=== PATIENT | female | born 1975 | race African-American/Black ===

== ENCOUNTER 2017-03-19 08:57 | Emergency (ER) | payer OTHER ==
[~2017-03-19] VITALS: Ht 157.5 cm; Wt 80.8 kg
[~2017-03-19 08:57] MED LIST: DOCUSATE SODIU100 MG PO; MAXIMUM DAILY1 EAC1 PO; MOTRIN800 MG PO; NOHOMEMEDS; OMEPRAZOLE40 M1 PO; PROTONIX40 MG PO; TESSALON PERLE100 MG PO; ULTRAM50 MG PO; ZITHROMAX250 MG PO
[2017-03-19 09:55] LABS: PROTHROMBIN TIME 10.6 (9.2-11.2); PTT 24.2 (25-32)
[2017-03-19 09:58] LABS: HEMATOCRIT 23.9 % (36.0-46.0); MCH 16.9 PG (29.0-34.0); MCHC 27.6 G/DL (30.0-36.0); MCV 61.1 FL (83-99); PLATELET COUNT 167 K/uL (156-360); RBC DIS.WIDTH-CV 21.9 % (11.8-14.6); RBC DIS.WIDTH-SD 45.9 % (39-53); RED BLOOD COUNT 3.91 M/uL (3.80-5.20); WHITE BLOOD COUNT 8.9 K/uL (4.1-10.2)
[2017-03-19 11:36] VITALS: BP 144/85
[2017-03-19 12:31] LABS: ANION GAP 10 MEQ/L (2-14); CHLORIDE 108 MEQ/L (99-109); GFR ESTIMATE (CALCULATED) > 59 mL/min/; GLUCOSE 125 mg/dL (70-99); POTASSIUM 3.8 MEQ/L (3.7-5.4); SAMPLE HEMOLYSIS CHECK 0; SAMPLE ICTERIC CHECK 0; SAMPLE LIPEMIA CHECK 0; SODIUM 141 MEQ/L (136-147); UREA NITROGEN (BUN) 10 mg/dL (9-23)
[2017-03-19 13:08] LABS: QUANTITATIVE HCG < 4.0 MIU/ML
[2017-03-19] MEDS ORDERED: FEOSOL325 MG PO (13:13)
== END 2017-03-19 11:37 | disposition home or self-care (01) ==
LOC: EME 08:57
PROVIDERS: Nurse Practitioner Family
DX: D50.9 Iron deficiency anemia, unspecified (principal); Z72.0 Tobacco use
CPT/HCPCS: 80048; 84702; 85027; 85610; 85730; 86900; 86901; 86920; 86999; 93005; 99281; 99284

== ENCOUNTER 2017-06-28 05:12 | Day surgery (SDC) | payer OTHER ==
[~2017-06-28] VITALS: Ht 157.5 cm; Wt 79.4 kg
[~2017-06-28 05:12] MED LIST changes: +ALEVE220 MG PO; +FEOSOL325 MG PO
[2017-06-28 05:53] VITALS: BP 150/64
[2017-06-28 09:20] VITALS: BP 132/72
[2017-06-28 10:20] VITALS: BP 142/81
== END 2017-06-28 11:00 | disposition home or self-care (01) ==
LOC: SDC 05:12
DX: N84.0 Polyp of corpus uteri (principal); N92.0 Excessive and frequent menstruation with regular cycle; N85.4 Malposition of uterus; D64.9 Anemia, unspecified; N94.6 Dysmenorrhea, unspecified; D25.1 Intramural leiomyoma of uterus; B19.10 Unspecified viral hepatitis B without hepatic coma; E66.9 Obesity, unspecified; R73.03 Prediabetes; Z87.891 Personal history of nicotine dependence; Z82.3 Family history of stroke; Z83.49 Family history of other endocrine, nutritional and metabolic diseases; Z80.0 Family history of malignant neoplasm of digestive organs; Z82.49 Family history of ischemic heart disease and other diseases of the circulatory system
CPT/HCPCS: 88305; J1100; J2250; J2405; J3010

== ENCOUNTER 2017-07-24 09:09 | Emergency (ER) | payer OTHER ==
[~2017-07-24] VITALS: Ht 157.5 cm; Wt 78.0 kg
[2017-07-24 09:49] LABS: BASOPHIL COUNT 0.1 K/uL (0-0.1); EOSINOPHIL (%) 0.2 % (0-5); HEMATOCRIT 31.8 % (36.0-46.0); IMMATURE GRANULOCYTE (%) 0.2 % (0.0-0.7); INSTRUMENT ABS NEUTROPHIL CT 7.2 K/uL; LYMPHOCYTE COUNT 1.9 K/uL (1.0-2.8); MCH 19.8 PG (29.0-34.0); MCHC 30.2 G/DL (30.0-36.0); MCV 65.7 FL (83-99); MEAN PLAT.VOLUME 11.8 uM^3 (9.5-12.4); MONOCYTE COUNT 0.8 K/uL (0-0.8); NEUTROPHIL (%) 71.7 % (45-76); NEUTROPHIL COUNT 7.2 K/uL (1.8-6.4); PLATELET COUNT 337 K/uL (156-360); RBC DIS.WIDTH-CV 18.5 % (11.8-14.6); RBC DIS.WIDTH-SD 42.9 % (39-53); RED BLOOD COUNT 4.84 M/uL (3.80-5.20)
[2017-07-24 09:55] LABS: CHLORIDE 105 mEq/L (99-109); POTASSIUM 3.5 mEq/L (3.7-5.4); SODIUM 138 mEq/L (136-147)
[2017-07-24 09:57] LABS: GLUCOSE 101 mg/dL (70-99)
[2017-07-24 09:59] LABS: ANION GAP 11 MEQ/L (2-14)
[2017-07-24 10:00] LABS: SERUM ETHYL ALCOHOL < 10 mg/dL
[2017-07-24 10:01] LABS: GFR ESTIMATE (CALCULATED) > 59 mL/min/
[2017-07-24 10:02] LABS: UREA NITROGEN (BUN) 11 mg/dL (9-23)
[2017-07-24 10:10] LABS: QUANTITATIVE HCG < 4.0 MIU/ML
[2017-07-24 11:05] LABS: ADD MEDTOX COMMENT Y; AMPHETAMINE NEGATIVE (500 ng/mL); BARBITURATES NEGATIVE (200 ng/mL); BENZODIAZEPINES NEGATIVE (150 ng/mL); COCAINE PRESUMPTIVE POSITIVE (150 ng/mL); INTERNAL CONTROLS VALID? YES; METHADONE NEGATIVE (200 ng/mL); METHAMPHETAMINE NEGATIVE (500 ng/mL); OPIATES (MORPHINE) NEGATIVE (100 ng/mL); OXYCODONE NEGATIVE (100 ng/mL); PHENCYCLIDINE NEGATIVE (25 ng/mL); PROPOXYPHENE NEGATIVE (300 ng/mL); THC CANNABINOIDS PRESUMPTIVE POSITIVE (50 ng/mL); TRICYCLIC ANTIDEPRESSANTS NEGATIVE (300 ng/mL)
[2017-07-24 11:17] VITALS: BP 160/94
== END 2017-07-24 11:18 | disposition home or self-care (01) ==
LOC: EME 09:09
PROVIDERS: Personal Emergency Response Attendant
DX: F32.9 Major depressive disorder, single episode, unspecified (principal); F12.10 Cannabis abuse, uncomplicated
CPT/HCPCS: 80048; 84702; 84999; 85025; 90839; 99281; 99283; G0480

== ENCOUNTER 2017-10-15 06:42 | Day surgery (SDC) | payer OTHER ==
[~2017-10-15] VITALS: Ht 157.5 cm; Wt 79.4 kg
[~2017-10-15 06:42] MED LIST changes: +CENTRUM WOMEN1 EACH PO
[2017-10-15 07:39] VITALS: BP 116/59
[2017-10-15 09:31] LABS: HEMOGLOBIN 10.2 G/DL (11.9-15.5); MCH 20.4 PG (29.0-34.0); PLATELET COUNT 354 K/uL (156-360); RBC DIS.WIDTH-SD 55.9 % (39-53); WHITE BLOOD COUNT 9.4 K/uL (4.1-10.2)
[2017-10-15 13:47] VITALS: BP 141/83
[2017-10-15 14:45] VITALS: BP 144/92
[2017-10-15 16:45] VITALS: BP 146/61
[2017-10-15 20:01] VITALS: BP 155/75
[2017-10-16 06:49] LABS: BASOPHIL (%) 0.1 % (0-1); EOSINOPHIL (%) 0.2 % (0-5); EOSINOPHIL COUNT 0.1 K/uL (0-0.3); HEMATOCRIT 30.2 % (36.0-46.0); HEMOGLOBIN 8.9 G/DL (11.9-15.5); IMMATURE GRANULOCYTE (%) 0.4 % (0.0-0.7); LYMPHOCYTE (%) 10.3 % (15-42); LYMPHOCYTE COUNT 2.2 K/uL (1.0-2.8); MCH 19.6 PG (29.0-34.0); MCHC 29.5 G/DL (30.0-36.0); MCV 66.7 FL (83-99); MONOCYTE (%) 5.6 % (3-12); MONOCYTE COUNT 1.2 K/uL (0-0.8); NEUTROPHIL (%) 83.4 % (45-76); NEUTROPHIL COUNT 17.6 K/uL (1.8-6.4); PLATELET COUNT 329 K/uL (156-360); RBC DIS.WIDTH-CV 23.7 % (11.8-14.6); RBC DIS.WIDTH-SD 54.4 % (39-53); RED BLOOD COUNT 4.53 M/uL (3.80-5.20); WHITE BLOOD COUNT 21.1 K/uL (4.1-10.2)
[2017-10-16 06:56] LABS: CHLORIDE 107 MEQ/L (99-109); CREATININE 0.7 MG/DL (0.6-1.3); GFR ESTIMATE (CALCULATED) > 59 mL/min/; GLUCOSE 105 mg/dL (70-99); POTASSIUM 3.9 MEQ/L (3.7-5.4); SODIUM 139 MEQ/L (136-147); UREA NITROGEN (BUN) 7 mg/dL (9-23)
== END 2017-10-16 12:00 | disposition home or self-care (01) ==
LOC: SDC → 2SOUTH 12:10 → ENRESERV 12:11 → SDC 13:38 → ENRESERV 19:05 → CANRESERV 19:05 → 2SOUTH 10-16 12:00
PROVIDERS: Obstetrics & Gynecology Gynecology
PROC: 0UT74ZZ Resection of Bilateral Fallopian Tubes, Percutaneous Endoscopic Approach (ICD-10-PCS; principal; 2017-10-15)
PROC: 0UT94ZZ Resection of Uterus, Percutaneous Endoscopic Approach (ICD-10-PCS; principal; 2017-10-15)
PROC: 0TJB8ZZ Inspection of Bladder, Via Natural or Artificial Opening Endoscopic (ICD-10-PCS; principal; 2017-10-15)
DX: N80.0 Endometriosis of uterus (principal); D25.0 Submucous leiomyoma of uterus; D64.9 Anemia, unspecified; N92.0 Excessive and frequent menstruation with regular cycle; N94.6 Dysmenorrhea, unspecified; K66.0 Peritoneal adhesions (postprocedural) (postinfection); E66.9 Obesity, unspecified; Z68.32 Body mass index [BMI] 32.0-32.9, adult; R73.03 Prediabetes
CPT/HCPCS: 80048; 85025; 85027; 86850; 86900; 86901; 86920; 87086; 88302; 88307; G0378; J0131; J0690; J1100; J1170; J1644; J1885; J2001; J2250; J2405; J2710; J2765; J3010; J3475; J7120; Q0175

== ENCOUNTER 2018-03-23 01:47 | Emergency (ER) | payer OTHER ==
[~2018-03-23] VITALS: Ht 152.4 cm; Wt 76.0 kg
[2018-03-23 01:51] VITALS: BP 169/101
== END 2018-03-23 02:25 | disposition left against medical advice (07) ==
LOC: EME 01:47
DX: M54.9 Dorsalgia, unspecified (principal); Z53.21 Procedure and treatment not carried out due to patient leaving prior to being seen by health care provider
CPT/HCPCS: 93005